=== PATIENT | female | born 1985 | race Asian ===

== ENCOUNTER 2020-05-30 03:30 | Inpatient (IN) | payer OTHER ==
[2020-05-30] MEDS ORDERED: BENZOCAINE 28 GM HEMORRHOIDAL OINTMENT RC PRN (04:32)
[2020-05-30] MEDS ORDERED: BISACODYL 10 MG SUPP.RECT PR PRN (04:32)
[2020-05-30] MEDS ORDERED: METHYLERGONOVINE MALEATE 0.2 MG/1 ML AMP IM PRN (04:32)
[2020-05-30] MEDS ORDERED: BENZOCAINE 20% 57 GM BOTTLE TP PRN (04:32)
[2020-05-30] MEDS ORDERED: WITCH HAZEL 50% (TUCKS) 40 PAD/JAR PAD TP PRN (04:32)
[2020-05-30] MEDS ORDERED: OXYTOCIN 20 UNITS in 0.9% NS 20 UNIT/1,000 ML INFUS.BAG IV SCH (04:45)
[2020-05-30] MEDS ORDERED: ELECTROLYTE-148 SOLN 1,000 ML IV SCH (04:45)
--- NOTE | 2020-05-30 04:52 | HP ---
Past Medical History - Primary Care Physician PCP:: Rosenda Deal - Admission Chief Complaint: Labor History of Present Illness: 35 yo EDC 06/02/2020 EGA 39.4 week admitted in active labor AMA hx hypothyroid x 1 2015 History Source: Patient Limitations to Obtaining History: No Limitations - Past Medical History ...: 2 ...Para: 1 ...EDC by Sono: 06/02/20 Additional OB History: 2016 son with clubbed foot Endocrine: Yes: Hyperthyroidism - Past Surgical History Hx Myomectomy: No Hx Transabdominal Cerclage: No - Alcohol/Substance Use Hx Alcohol Use: No History of Substance Use: reports: None - Social History Usual Living Arrangement: Yes: With Spouse Do you think of yourself as: Straight/Heterosexual History of Recent Travel: No Review of Systems - Review of Systems Constitutional: reports: No Symptoms Eyes: reports: No Symptoms HENT: reports: No Symptoms Neck: reports: No Symptoms Cardiovascular: reports: No Symptoms Respiratory: reports: No Symptoms Gastrointestinal: reports: No Symptoms Genitourinary: reports: No Symptoms Breasts: reports: No Symptoms Reported Musculoskeletal: reports: No Symptoms Integumentary: reports: No Symptoms Neurological: reports: No Symptoms Endocrine: reports: No Symptoms Hematology/Lymphatic: reports: No Symptoms Psychiatric: reports: No Symptoms Physical Exam - Maternity Constitutional: Yes: Well Nourished, No Distress Neck: Yes: WNL - Abdominal Exam/OB Fundal Height: 39 Number of Fetuses: Single Presentation: Vertex Contractions: Yes Regularity: Regular Monitor Mode: External Heart Rate Location: [facility] Category: I - Vaginal Exam/OB Dilatation (cm): fd Amniotic Membrane Status: Ruptured Presentation: Vertex/Position Station: +1 - Physical Exam Edema: No Psychiatric: Yes: WNL, Alert, Oriented Hemorrhage Risk Assessment - Risk Factors Risk Score: 0 Risk Level: Low Risk Problem List - Problems (1) Elderly multigravida in third trimester Problems reviewed: Yes Code(s): O09.523 - SUPERVISION OF ELDERLY MULTIGRAVIDA, THIRD TRIMESTER (2) 39 weeks gestation of Code(s): Z3A.39 - 39 WEEKS GESTATION OF Assessment/Plan AMA Cat 1 x 1 Plan anticipate vaginal delivery
[2020-05-30 04:55] LABS: BASO % 0.4 % (0-2.0); EOS % 0.7 % (0-4.5); HEMATOCRIT 39.6 % (32.4-45.2); HEMOGLOBIN 13.6 GM/dL (10.7-15.3); LYMPH % 29.1 % (8-40); MCH 31.8 pg (25.7-33.7); MCHC 34.4 g/dl (32.0-36.0); MEAN CELL VOLUME 92.3 fl (80-96); MONO % 7.5 % (3.8-10.2); NEUT % 62.3 % (42.8-82.8); PLATELET COUNT 173 K/MM3 (134-434); RBC 4.29 M/mm3 (3.60-5.2); RDW 13.9 % (11.6-15.6); WHITE BLOOD COUNT 7.9 K/mm3 (4.0-10.0)
--- NOTE | 2020-05-30 04:59 | PN ---
Delivery - Delivery Vaginal Delivery: No Problems, Spontaneous Type of Anesthesia: Local Episiotomy/Laceration: Midline EBL (cc): 300 Delivery, Single - Stages of Labor Placenta: Yes: Spontaneous - Condition of Gender: Male Position: OA
[2020-05-30 06:02] LABS: INR 0.84 (0.83-1.09); PROTHROMBIN TIME (PATIENT) 9.9 SEC (9.7-13.0)
[2020-05-30 06:04] LABS: ACTIVATED PTT 30.8 SECONDS (25.2-36.5)
[2020-05-30 06:13] LABS: CORD BASE EXCESS -6.7 mmol/L (0-2); CORD HCO3 22.9 mmHg (20-29); CORD PCO2 61.7 mmHg (30-78); CORD pH 7.188 (7.14-7.44)
[2020-05-30 06:14] LABS: CORD BASE EXCESS -5.1 mmol/L (0-2); CORD HCO3 21.5 mmHg (20-29); CORD PCO2 45.6 mmHg (30-78); CORD pH 7.292 (7.14-7.44)
[2020-05-30 07:06] LABS: BLOOD UREA NITROGEN 8.2 mg/dL (7-18); CALCIUM 9.1 mg/dL (8.5-10.1); CREATININE 0.4 mg/dL (0.55-1.3); POTASSIUM 4.6 mmol/L (3.5-5.1)
[2020-05-30 07:29] VITALS: BMI 27.8
[2020-05-30] MEDS: LEVOTHYROXINE NA 50 MCG TABLET (FP) PO SCH (09:37)
[2020-05-30] MEDS ORDERED: DIPHTH,PERTUSS(ACELL),TET 0.5 ML DISP.SYRIN IM ONE (10:00)
[2020-05-30] MEDS: IBUPROFEN 600 MG TABLET (FP) PO PRN (18:15)
[2020-05-30] MEDS: ACETAMINOPHEN 325 MG TABLET (FP) PO PRN (18:15)
[2020-05-31] MEDS: LEVOTHYROXINE NA 50 MCG TABLET (FP) PO SCH (06:16)
[2020-05-31] MEDS: ACETAMINOPHEN 325 MG TABLET (FP) PO PRN (06:21)
[2020-05-31] MEDS: IBUPROFEN 600 MG TABLET (FP) PO PRN (06:21)
--- NOTE | 2020-05-31 06:43 | DS ---
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: Vital Signs Temperature 98.6 F 05/30/20 22:00 Pulse Rate 93 H 05/30/20 22:00 Respiratory Rate 18 05/30/20 22:00 Blood Pressure 103/72 05/30/20 22:00 O2 Sat by Pulse Oximetry (%) 98 05/30/20 22:00 Constitutional: Yes: Well Nourished, No Distress Gastrointestinal: Yes: WNL, Soft ....Post : Yes: Uterus firm, Uterus non-tender Breast(s): Yes: WNL Musculoskeletal: Yes: WNL Extremities: Yes: WNL Psychiatric: Yes: WNL, Alert, Oriented Labs: CBC, BMP 05/30/20 04:17 05/30/20 04:17 Delivery - Delivery Vaginal Delivery: No Problems, Spontaneous Type of Anesthesia: Local Episiotomy/Laceration: Midline EBL (cc): 300 Delivery, Single - Stages of Labor Date 1st Stage Initiatied: 05/30/20 Time 1st Stage Initiated: 01:00 Date 2nd Stage Initiated: 05/30/20 Time 2nd Stage Initiated: 03:45 Date of Delivery: 05/30/20 Time of Delivery: 04:39 Time Placenta Delivered: 04:45 Placenta: Yes: Spontaneous - 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 Gender: Male Weight: 6 lb 1 oz Position: OA Total Hours ROM (Hrs/Mins): 3h45m - 1 Minute Total Score: 9 5 Minutes Total Score: 9 - [place] Feeding Plan Initial Plan: Elected not to breastfeed exclusively throughout hospitalization Discharge Summary Problems reviewed: Yes Reason For Visit: LABOR ADMIT Current Active Problems 39 weeks gestation of (Acute) Elderly multigravida in third trimester (Acute) Procedures: Principal: Normal vaginal delivery Hospital Course: unremarkable Condition: Good - Instructions Diet, Activity, Other Instructions: Physical activity Resume your normal everyday activity as tolerated no heavy lifting or exercise until seen by your surgeon. You may walk unlimited carlos of and climb stairs. You may resume driving the car when you feel safe and comfortable behind the wheel. No sexual activity as instructed. Wound care If you have a bandage, leave it on, and keep dry for 48-72 hours. After that time discard the outer bandage. If they are tapes on the skin under the out of bandage leave them in place. They will peel off in the next 7 to 10 days. Do Not Peel them off. You may shower the day after surgery. If there are tapes present on the skin, you may shower over them. Diet There are no dietary restrictions. Eat healthy, high-fiber foods. Drink 6 to 8 glasses of liquid each day. This will assist in keeping your bowels are regular. Pain management You may take Tylenol or acetaminophen or Ibuprofen (for example, Motrin, Advil etc.) from my pain prescription medication is ordered should be taken as prescribed for moderate to severe pain. Call MD for any of the following: Severe pain not relieved by medication Fever of 101 or higher Excessive bleeding or drainage on dressing Inability to urinate Referrals: Rosenda Deal MD [Staff Physician] - Disposition: HOME - Home Medications Comprehensive Discharge Medication List: Ambulatory Orders Ibuprofen [Motrin -] 600 mg PO QID #28 tablet 05/31/20
[2020-05-31 08:38] LABS: BASO % 0.1 % (0-2.0); HEMATOCRIT 32.8 % (32.4-45.2); HEMOGLOBIN 11.2 GM/dL (10.7-15.3); LYMPH % 17.2 % (8-40); MCH 31.5 pg (25.7-33.7); MEAN CELL VOLUME 92.7 fl (80-96); MEAN PLT VOLUME 9.2 fl (7.5-11.1); MONO % 7.2 % (3.8-10.2); NEUT % 74.5 % (42.8-82.8); PLATELET COUNT 163 K/MM3 (134-434); RBC 3.54 M/mm3 (3.60-5.2); WHITE BLOOD COUNT 11.2 K/mm3 (4.0-10.0)
[2020-05-31 10:32] VITALS: BP 115/71; PULSE 106; TEMP 97.8
== END 2020-05-31 13:40 | disposition home or self-care (01) | DRG 807 ==
LOC: JLDR 03:30 → J3W 06:24
PROVIDERS: ADMIT Obstetrics & Gynecology; ATTEND Obstetrics & Gynecology
PROC: 10E0XZZ Delivery of Products of Conception, External Approach (ICD-10-PCS; principal; 2020-05-30)
PROC: 0W8NXZZ Division of Female Perineum, External Approach (ICD-10-PCS; 2020-05-30)
DX: O99.284 Endocrine, nutritional and metabolic diseases complicating childbirth (principal); Z37.0 Single live birth; E03.9 Hypothyroidism, unspecified; Z3A.39 39 weeks gestation of pregnancy
CPT/HCPCS: 36415; 36600; 59409; 80048; 82803; 85025; 85610; 85730; 86780; 86850; 86900; 86901; 90715; U0003